=== PATIENT | male | born 1990 | race Caucasian/White ===

== ENCOUNTER 2016-10-09 15:53 | Emergency (ER) | payer MEDICAID ==
--- NOTE | 2016-10-09 16:36 | EDPHY ---
H & P Stated Complaint: right side rib pain SOB for 2 days Source: Patient - Personal History Current Tetanus Diphtheria and Acellular Pertussis (TDAP): No - Medical/Surgical History Hx Asthma: No Hx Chronic Respiratory Disease: No Hx Diabetes: No Hx Cardiac Disease: No Hx Renal Disease: No Hx Cirrhosis: No Hx Alcoholism: No Hx HIV/AIDS: No Hx Splenectomy or Spleen Trauma: No Other PMH: bronchitis, psych - Social History Smoking Status: Current every day smoker Time Seen by Provider: 10/09/16 16:21 HPI/ROS: CHIEF COMPLAINT: Shortness of breath, right upper quadrant pain HISTORY OF PRESENT ILLNESS: This is a 26-year-old male presenting to the emergency department complaining of intermittent shortness of breath cough, and right upper quadrant abdominal pain. Patient states symptoms started 3 days ago with worsening symptoms today. Patient does state he is an unhealthy diet fried foods greasy foods. Has a history of chronic bronchitis smokes half a pack to 1 pack daily over the past 10 years, 1 oz of marijuana daily, denies any other drug or alcohol use. Denies any chest pain REVIEW OF SYSTEMS: Constitutional: No fever, no chills. Eyes: No discharge. ENT: No sore throat. Cardiovascular: No chest pain, no palpitations. Respiratory: cough, shortness of breath. Gastrointestinal: abdominal pain, no nausea vomiting Genitourinary: No hematuria. Musculoskeletal: No back pain. Skin: No rashes. Neurological: No headache. (Jaleesa Adan) - Physical Exam Exam: General Appearance: Alert, no distress. Eyes: no pallor or injection. ENT, Mouth: Mucous membranes moist. Respiratory: There are no retractions, lungs are decreased at the bases. nonlabored respiratory effort Cardiovascular: Regular rate and rhythm. Gastrointestinal: Abdomen is soft, nondistended, right upper quadrant tenderness on palpate, no masses, bowel sounds normal. Neurological: No focal deficits, ambulatory without gait disturbance Skin: Warm and dry, no rashes. Musculoskeletal: Neck is supple nontender. Extremities: symmetrical, full range of motion. Psychiatric: Patient is oriented X 3, there is no agitation. (Jaleesa Adan) Constitutional: Initial Vital Signs Temperature (C) 37 C 10/09/16 15:57 Heart Rate 111 H 10/09/16 15:57 Respiratory Rate 14 10/09/16 15:57 Blood Pressure 142/78 H 10/09/16 15:57 O2 Sat (%) 96 10/09/16 15:57 O2 Delivery Mode Room Air Allergies/Adverse Reactions: No Known Allergies Allergy (Unverified 10/09/16 15:59) Home Medications: Medication Instructions Recorded NK [No Known Home Meds] 10/09/16 Medical Decision Making ED Course/Re-evaluation: Discussed the plan of care: Chest x-ray, CBC, CMP, lipase 1715: Discussed all results with patient unremarkable. Discussed gallbladder ultrasound with patient he declined wants to leave at this time. Patient states he will follow up at the [facility] if needs to. I did discuss with patient to stop smoking stop using marijuana and make changes to his dietary habits 1730: Discharge home--> stable (Jaleesa Adan) Differential Diagnosis: Differential diagnosis considered not limited to pneumonia, cholelithiasis and bronchitis (Jaleesa Adan) Other Provider: The patient wasevaluatedand managed by themillevel provider. My co- signature indicates that Ihjose reviewed this chart and I agree with the findings and plan of care asdocumented. I am the secondary supervising physician. (Janelle Greene) - Data Points Laboratory Results: Laboratory Results 10/09/16 16:30 10/09/16 16:30 Departure - Departure Disposition: Home, Routine, Self-Care Clinical Impression: Shortness of breath, Right upper quadrant abdominal pain Condition: Good Instructions: Acute Abdominal Pain (ED), Dyspnea (ED) Additional Instructions: Discussed discharge instructions with patient 1. Discussed chest x-ray and labs unremarkable 2. Stop smoking cigarettes. Stop smoking pot 3. I would also recommend changes in dietary habits, decrease fried foods. Increase vegetable intake increase fluid intake 4. Follow up with primary care as needed Referrals: NONE *PRIMARY CARE P,. [Primary Care Provider] - As per Instructions [facility],. [Clinic] - As per Instructions
[2016-10-09 16:50] LABS: % IMMATURE GRANULYOCYTES 0.5 % (0.0-1.1); ABSOLUTE IMMATURE GRANULOCYTES 0.04 10^3/uL (0.00-0.10); ADD DIFF? NO; ADD MORPH? NO; ADD SCAN? NO; ATYPICAL LYMPHOCYTE FLAG 40 (0-99); FRAGMENT RBC FLAG 0 (0-99); HEMATOCRIT 42.4 % (40.0-51.0); HEMOGLOBIN 15.3 g/dL (13.7-17.5); LEFT SHIFT FLG 0 (0-99); LIPEMIA HEMOLYSIS FLAG 90 (0-99); MEAN CELL HEMOGLOBIN 33.2 pg (27.9-34.1); MEAN CELL HEMOGLOBIN CONCENTR. 36.1 g/dL (32.4-36.7); MEAN PLATELET VOLUME 11.7 fL (8.7-11.7); PLATELET CLUMPS FLAG 0 (0-99); PLATELET COUNT 202 10^3/uL (150-400); RED BLOOD CELL COUNT 4.61 10^6/uL (4.40-6.38)
[2016-10-09 17:07] LABS: ALANINE AMINOTRANSFERASE 30 IU/L (21-72); ALBUMIN 4.7 g/dL (3.5-5.0); ALKALINE PHOSPHATASE 64 IU/L (38-126); ANION GAP 11 mEq/L (8-16); ASPARTATE AMINOTRANSFERASE 24 IU/L (17-59); BILIRUBIN,TOTAL 0.6 mg/dL (0.1-1.4); CALCIUM 9.1 mg/dL (8.5-10.4); CARBON DIOXIDE 22 mEq/l (22-31); CHLORIDE 111 mEq/L (97-110); CREATININE 0.7 mg/dL (0.7-1.3); GLOMERULAR FILTRATION RATE > 60; GLUCOSE 84 mg/dL (70-100); POTASSIUM 4.1 mEq/L (3.5-5.2); SODIUM 144 mEq/L (134-144); TOTAL PROTEIN 7.4 g/dL (6.3-8.2)
[2016-10-09 17:31] VITALS: BP 112/73; PULSE 94; RESP 18; TEMP 98.2; O2SAT 94
== END 2016-10-09 17:32 | disposition home or self-care (01) ==
DX: R06.02 Shortness of breath (principal); R10.11 Right upper quadrant pain; F17.200 Nicotine dependence, unspecified, uncomplicated

== ENCOUNTER 2016-11-05 15:56 | Emergency (ER) | payer MEDICAID ==
[2016-11-05 16:05] VITALS: TEMP 97.5
--- NOTE | 2016-11-05 16:19 | EDPHY ---
H & P Stated Complaint: Lower back pain x 1 week. - Personal History Current Tetanus/Diphtheria Vaccine: Yes Current Tetanus Diphtheria and Acellular Pertussis (TDAP): Yes - Medical/Surgical History Hx Asthma: No Hx Chronic Respiratory Disease: No Hx Diabetes: No Hx Cardiac Disease: No Hx Renal Disease: No Hx Cirrhosis: No Hx Alcoholism: No Hx HIV/AIDS: No Hx Splenectomy or Spleen Trauma: No Other PMH: bronchitis, psych - Social History Smoking Status: Current every day smoker Time Seen by Provider: 11/05/16 16:11 HPI/ROS: CHIEF COMPLAINT: left flank and left back pain x1.5 weeks HISTORY OF PRESENT ILLNESS: 26-year-old male complaining of 1.5 weeks of left flank and left thoracic back pain which is partially reproducible with range of motion, however notes that it feels like a deep ache in his flank and thoracic region. The pain is intermittent and is not followed definitive pattern . Feels like the area is " hot" . Is intermittently reproducible with movement, intermittently reproducible with inspiration. No history of trauma. No rash or vesicles. No urinary abnormality such as hematuria increased frequency. No genitalia complaints. REVIEW OF SYSTEMS: A ten point review of systems was performed and is negative with the exception of the items mentioned in the HPI PAST MEDICAL & SURGICAL HISTORY: no history of nephrolithiasis. SOCIAL HISTORY: positive cigarette smoker. No cocaine use. 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 Appears to be in no acute distress. 2) HEAD: Normocephalic, atraumatic 3) HEENT: Pupils equal, round, reactive to light bilaterally. Sclera anicteric. 4) NECK: Full range of motion, no meningeal signs. 5) LUNGS: Clear auscultation bilaterally, no wheezes, no rhonchi, no retractions. 6) HEART: Regular rate and rhythm, no murmur, no heave, no gallop. 7) ABDOMEN: No guarding, no rebound, no focal tenderness, negative McBurney's, negative Hodge's, negative Rovsing's, negative peritoneal sign, no splenomegaly 8) MUSCULOSKELETAL: Moving all extremities, no focal areas of tenderness, no obvious trauma. No peripheral edema or discoloration. 9) BACK: No CVA tenderness, no midline vertebral tenderness, no fluctuance, no step-off, no obvious trauma, no visual or palpable abnormality. I am unable to reproduce pain with palpation. No rash no vesicles 10) SKIN: No rash, no petechiae. 11) Psychiatric: Patient is oriented X 3, there is no agitation. DIFFERENTIAL DIAGNOSIS: in no particular include but limited to nephrolithiasis, muscle strain, discogenic etiology, pulmonary embolus (Rosanna Segal) Constitutional: Initial Vital Signs Temperature (C) 36.4 C 11/05/16 16:01 Heart Rate 114 H 11/05/16 16:01 Respiratory Rate 18 11/05/16 16:01 Blood Pressure 147/81 H 11/05/16 16:01 O2 Sat (%) 98 11/05/16 16:01 O2 Delivery Mode Room Air Allergies/Adverse Reactions: No Known Allergies Allergy (Unverified 10/09/16 15:59) Home Medications: Medication Instructions Recorded Metaxalone [Skelaxin 800 mg (*)] 800 mg PO TID PRN #12 tab 11/05/16 Medical Decision Making ED Course/Re-evaluation: We discussed the test results. The patient is relieved. I will start him on muscle relaxants and ibuprofen. He is eager to get back to work. He declines further workup or testing at this time. He is relieved. We discussed indications for returning. (Marquis Mueller) 4:48 p.m.: Patient describes a vague a pain to the left flank and some left lower thoracic region. He is also noted to be tachycardic heart rate of 113. Specific etiology is tachycardia is not completely clear Discussed possible etiologies including muscle strain, nephrolithiasis, pyelonephritis, pulmonary embolus, lower lobe pneumonia. I recommended for diagnostic studies including D -dimer, CT renal study. 5:00 p.m.: Care turned over to Dr. Marquis Mueller at this time, diagnostic studies pending (Rosanna Segal) Differential Diagnosis: Partial list of the Differential diagnosis considered include but were not limited to; muscle strain, kidney stone, urinary tract infection and although unlikely based on the history and physical exam, I also considered PE, pneumonia , acute coronary disease, peptic ulcer disease. I discussed these differential diagnoses and the plan with the patient as well as the usual and expected course. The patient understands that the diagnosis is provisional and that in medicine we are not always correct and that further workup is often warranted. Usual and customary warnings were given. All of the patient's questions were answered. The patient was instructed to return to the emergency department should the symptoms at all worsen or return, otherwise to followup with the physician as we discussed. (Marquis Mueller) - Data Points Laboratory Results: Laboratory Results 11/05/16 17:01 11/05/16 17:01 Departure - Departure Disposition: Home, Routine, Self-Care Clinical Impression: Back pain Condition: Fair Instructions: Back Pain (ED) Referrals: Andrew Dooley MD [[facility] [place] Provider] - As per Instructions Prescriptions: Metaxalone [Skelaxin 800 mg (*)] 800 mg PO TID PRN #12 tab PRN Reason: Spasms
[2016-11-05 16:46] LABS: COLOR YELLOW; LEUKOCYTE ESTERASE,URINE NEGATIVE (NEGATIVE); MUCUS TRACE /lpf (NONE-1+); NITRITE,URINE NEGATIVE (NEGATIVE)
[2016-11-05 17:16] LABS: % IMMATURE GRANULYOCYTES 0.3 % (0.0-1.1); ABSOLUTE IMMATURE GRANULOCYTES 0.02 10^3/uL (0.00-0.10); ADD DIFF? NO; ADD MORPH? NO; ADD SCAN? NO; ATYPICAL LYMPHOCYTE FLAG 30 (0-99); FRAGMENT RBC FLAG 0 (0-99); HEMATOCRIT 43.2 % (40.0-51.0); HEMOGLOBIN 15.2 g/dL (13.7-17.5); LEFT SHIFT FLG 0 (0-99); LIPEMIA HEMOLYSIS FLAG 90 (0-99); MEAN CELL HEMOGLOBIN CONCENTR. 35.2 g/dL (32.4-36.7); MEAN CELL VOLUME 93.9 fL (81.5-99.8); PLATELET CLUMPS FLAG 0 (0-99); PLATELET COUNT 167 10^3/uL (150-400); RED CELL DISTRIBUTION WIDTH 12.3 % (11.5-15.2)
[2016-11-05 17:31] LABS: ANION GAP 9 mEq/L (8-16); CALCIUM 9.4 mg/dL (8.5-10.4); CARBON DIOXIDE 23 mEq/l (22-31); CHLORIDE 104 mEq/L (97-110); CREATININE 0.9 mg/dL (0.7-1.3); GLOMERULAR FILTRATION RATE > 60; GLUCOSE 87 mg/dL (70-100); SODIUM 136 mEq/L (134-144)
[2016-11-05 18:19] VITALS: BP 125/64; PULSE 58; RESP 14; O2SAT 94
== END 2016-11-05 18:19 | disposition home or self-care (01) ==
DX: M54.9 Dorsalgia, unspecified (principal); F17.200 Nicotine dependence, unspecified, uncomplicated

== ENCOUNTER 2017-01-08 00:13 | Emergency (ER) | payer MEDICAID ==
[2017-01-08 00:28] VITALS: BP 126/94; PULSE 71; RESP 16; TEMP 98.8; O2SAT 95
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
[2017-01-08] MEDS ORDERED: CEPHALEXIN 500MG PREPACK#4 BTL TAKEHOME ONE (01:07)
[2017-01-08] MEDS ORDERED: HYDROCOD/APAP 5/325 PREPACK#6 BTL TAKEHOME ONE (01:20)
== END 2017-01-08 01:37 | disposition home or self-care (01) ==
PROC: 0H9MXZZ Drainage of Right Foot Skin, External Approach (ICD-10-PCS; principal; 2017-01-08)
DX: L03.031 Cellulitis of right toe (principal); F17.200 Nicotine dependence, unspecified, uncomplicated; V28.0XXA Motorcycle driver injured in noncollision transport accident in nontraffic accident, initial encounter; Y93.55 Activity, bike riding
CPT/HCPCS: L3260

== ENCOUNTER 2017-01-10 12:57 | Emergency (ER) | payer MEDICAID ==
[2017-01-10 13:02] VITALS: BP 130/87; PULSE 85; RESP 16; TEMP 98.2; O2SAT 95
--- NOTE | 2017-01-10 13:20 | EDPHY ---
H & P Time Seen by Provider: 01/10/17 13:08 HPI/ROS: CHIEF COMPLAINT: Wound recheck HISTORY OF PRESENT ILLNESS: 26-year-old male presents to the emergency department for a wound recheck of his right great toe. Patient was seen in the emergency department 2 days ago and had an abscess to the right great toe which was incised and drained. Packing was placed underneath the right toenail. Patient is here for wound recheck and packing removal. He was unable to remove the packing on his own. ROS: Denies fevers or chills. Denies continued purulent or bloody drainage from the wound. Past Medical/Surgical History: Bronchitis Social History: Single Smoking Status: Current every day smoker Physical Exam: On examination the patient has iodoform quarter-inch gauze noted underneath the right toenail. There is no purulent drainage noted. No redness. No signs of cellulitis. The nail is still intact at the base. The packing was easily removed. No further purulent drainage noted. Minimally tender to palpate. Bandage was applied. Constitutional: Initial Vital Signs Temperature (C) 36.8 C 01/10/17 12:58 Heart Rate 85 01/10/17 12:58 Respiratory Rate 16 01/10/17 12:58 Blood Pressure 130/87 H 01/10/17 12:58 O2 Sat (%) 95 01/10/17 12:58 O2 Delivery Mode Room Air Allergies/Adverse Reactions: No Known Allergies Allergy (Unverified 01/08/17 00:28) Home Medications: Medication Instructions Recorded Cephalexin [Keflex] 500 mg PO QID 10 Days 01/08/17 MDM/Departure - [facility] ED Course/Re-evaluation: The patient will continue Keflex as prescribed. His packing was easily removed. The nail is still intact. Bandage was applied. He was given wound care precautions. - Depart Disposition: Home, Routine, Self-Care Clinical Impression: Encounter for wound re-check Condition: Good Instructions: Acute Wounds (ED) Additional Instructions: Continue antibiotics as prescribed. You may continue to use Band-Aids as discussed to help hold the nail in place. Referrals: Vikki David MD [Medical Doctor] - 2-3 days, call for appt. (Primary care provider weatherization administrator)
== END 2017-01-10 13:33 | disposition home or self-care (01) ==
DX: Z48.01 Encounter for change or removal of surgical wound dressing (principal); F17.200 Nicotine dependence, unspecified, uncomplicated
CPT/HCPCS: G0463

== ENCOUNTER 2018-10-15 02:34 | Emergency (ER) | payer MEDICAID ==
[2018-10-15] MEDS ORDERED: fentaNYL 100 MCG/2 ML INJ IVP ONE (02:40)
[2018-10-15] MEDS ORDERED: fentaNYL 100 MCG/2 ML INJ ONE (02:40)
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
[2018-10-15 02:47] VITALS: BP 146/100
[2018-10-15 02:57] LABS: PLATELET COUNT 274 10^3/uL (150-400)
[2018-10-15] MEDS ORDERED: IBUPROFEN 200 MG TAB PO ONE (06:56)
[2018-10-15] MEDS ORDERED: ACETAMINOPHEN 500 MG TAB PO ONE (06:56)
== END 2018-10-15 07:06 | disposition home or self-care (01) ==
LOC: EDUNIT#
DX: S16.1XXA Strain of muscle, fascia and tendon at neck level, initial encounter (principal); F10.921 Alcohol use, unspecified with intoxication delirium
CPT/HCPCS: 96374; G0480; J3010